=== PATIENT | male | born 1995 | race American Indian/Alaskan Native ===

== ENCOUNTER 2017-04-23 13:43 | Emergency (ER) | payer SELFPAY ==
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
[2017-04-23 16:07] VITALS: BP 128/78; PULSE 52; RESP 18; TEMP 97.9
[2017-04-23 16:33] VITALS: O2SAT 99
== END 2017-04-23 16:10 | disposition home or self-care (01) ==
LOC: C.ER 13:43
DX: S00.83XA Contusion of other part of head, initial encounter (principal); Y08.89XA Assault by other specified means, initial encounter